=== PATIENT | male | born 1925 | race Caucasian/White ===

== ENCOUNTER 2017-01-08 06:22 | Inpatient (IN) | payer OTHER ==
[~2017-01-08] VITALS: Ht 172.7 cm; Wt 99.8 kg
[2017-01-08] MEDS ORDERED: DONEPEZIL HYDRO10 M2 PO (07:10)
[2017-01-08] MEDS ORDERED: TRAZODONE50 M1 PO (07:10)
[2017-01-08] MEDS ORDERED: NOR5 PO (07:10)
[2017-01-08] MEDS ORDERED: AMARYL4 MG (07:11)
[2017-01-08] MEDS ORDERED: HALOPERIDOL2 MG (07:11)
[2017-01-08] MEDS ORDERED: MOT600 PO (07:12)
[2017-01-08] MEDS ORDERED: NAMENDA10 M2 PO (07:12)
[2017-01-08] MEDS ORDERED: BENAZEPRIL10 M1 (07:12)
[2017-01-08 07:48] LABS: BASOPHIL % 0.3 % (0-2); PLATELET COUNT 214 x10^3mcL (130-400); RED CELL DISTRIBUTION WIDTH 13.5 % (11.5-14.5)
[2017-01-08 08:17] LABS: ALBUMIN 2.8 g/dL (3.4-5.0); ALKALINE PHOSPHATASE 86 U/L (46-116); ALT/SGPT 25 U/L (16-63); AST/SGOT 28 U/L (15-37); BILIRUBIN TOTAL 0.6 mg/dL (0.20-1.00); CALCIUM 8.4 mg/dL (8.5-10.1); CARBON DIOXIDE 27.9 mmol/L (21-32); CHLORIDE SERUM 105 mmol/L (98-107); CREATININE SERUM 1.6 mg/dL (0.7-1.3); GLUCOSE SERUM 229 mg/dL (74-106); POTASSIUM SERUM 3.8 mmol/L (3.5-5.1); SODIUM SERUM 138 mmol/L (136-145); TOTAL PROTEIN, SERUM 7.8 g/dL (6.4-8.2)
[2017-01-08 09:18] VITALS: BP 139/64
[2017-01-08 09:46] LABS: T3 TOTAL 0.91 ng/mL
[2017-01-08 10:30] LABS: CHOLESTEROL/HDL RATIO 4.3; MAGNESIUM 1.7 mg/dL (1.8-2.4); PHOSPHOROUS 3.3 mg/dL (2.5-4.9)
[2017-01-08 10:40] LABS: FREE T4 1.35 ng/dL (0.76-1.46); FREE THYROXINE INDEX 3.1 ug/dL (1.4-4.5); T4(THYROXINE) 8.5 ug/dL (4.7-13.3)
[2017-01-08 11:40] VITALS: BP 139/64
[2017-01-08 17:43] LABS: RED BLOOD CELLS 3.92 M/mm3 (4.52-5.90)
[2017-01-08 19:34] LABS: IRON 33 ug/dL (65-170); TOTAL IRON BINDING CAPACITY 278 ug/dL (250-450)
[2017-01-08 20:50] VITALS: BP 155/77
[2017-01-09] VITALS (7 sets, daily range): BP systolic 109–144; BP diastolic 55–66; Ht 172.7 cm; Wt 99.8 kg
[2017-01-09 00:44] LABS: UA SPECIFIC GRAVITY >=1.030 (1.005-1.035); microscopic required? YES; urine erythrocyte TRACE (NEGATIVE)
[2017-01-09 06:32] LABS: BASOPHIL % 0.5 % (0-2); PLATELET COUNT 227 x10^3mcL (130-400); RED CELL DISTRIBUTION WIDTH 13.5 % (11.5-14.5)
[2017-01-09 06:41] LABS: CALCIUM 8.3 mg/dL (8.5-10.1); CARBON DIOXIDE 28.9 mmol/L (21-32); CHLORIDE SERUM 108 mmol/L (98-107); CREATININE SERUM 1.7 mg/dL (0.7-1.3); GLUCOSE SERUM 170 mg/dL (74-106); PHOSPHOROUS 4.1 mg/dL (2.5-4.9); POTASSIUM SERUM 4.3 mmol/L (3.5-5.1); SODIUM SERUM 144 mmol/L (136-145)
[2017-01-10 05:00] VITALS: BP 138/68
[2017-01-10 05:59] LABS: BASOPHIL % 0.1 % (0-2); PLATELET COUNT 199 x10^3mcL (130-400); RED CELL DISTRIBUTION WIDTH 13.3 % (11.5-14.5)
[2017-01-10 06:14] LABS: CALCIUM 8.6 mg/dL (8.5-10.1); CARBON DIOXIDE 29.2 mmol/L (21-32); CHLORIDE SERUM 105 mmol/L (98-107); CREATININE SERUM 1.7 mg/dL (0.7-1.3); GLUCOSE SERUM 178 mg/dL (74-106); SODIUM SERUM 140 mmol/L (136-145)
[2017-01-10 06:22] LABS: MAGNESIUM 2.1 mg/dL (1.8-2.4); PHOSPHOROUS 4.5 mg/dL (2.5-4.9)
[2017-01-10 09:25] VITALS: BP 142/77
[2017-01-10 12:59] VITALS: BP 124/58
[2017-01-10 16:58] VITALS: BP 150/70
[2017-01-10 21:47] VITALS: BP 94/67
[2017-01-11 05:34] VITALS: BP 126/68
[2017-01-11 08:13] LABS: BASOPHIL % 0.5 % (0-2); PLATELET COUNT 214 x10^3mcL (130-400); RED CELL DISTRIBUTION WIDTH 13.3 % (11.5-14.5)
[2017-01-11 09:09] LABS: CALCIUM 8.6 mg/dL (8.5-10.1); CARBON DIOXIDE 29.1 mmol/L (21-32); CHLORIDE SERUM 105 mmol/L (98-107); CREATININE SERUM 1.5 mg/dL (0.7-1.3); GLUCOSE SERUM 106 mg/dL (74-106); POTASSIUM SERUM 4.4 mmol/L (3.5-5.1); SODIUM SERUM 141 mmol/L (136-145)
[2017-01-11 10:57] VITALS: BP 116/80
[2017-01-11 13:51] VITALS: BP 121/78
[2017-01-11 17:40] VITALS: BP 137/62
[2017-01-11] MEDS ORDERED: LAC PO (18:18)
[2017-01-11] MEDS ORDERED: CLINDAMYCI600 MG/50 IV (18:18)
[2017-01-11] MEDS ORDERED: LEVOFLOXACIN IV (18:18)
== END 2017-01-11 22:09 | DRG 177 ==
LOC: ED 06:22 → DU 08:07
PROVIDERS: Emergency Medicine; Family Medicine; ADMIT Family Medicine
DX: J69.0 Pneumonitis due to inhalation of food and vomit (principal); G93.41 Metabolic encephalopathy; N17.0 Acute kidney failure with tubular necrosis; E43 Unspecified severe protein-calorie malnutrition; I48.91 Unspecified atrial fibrillation; M51.36 Other intervertebral disc degeneration, lumbar region; N31.9 Neuromuscular dysfunction of bladder, unspecified; N39.498 Other specified urinary incontinence; K59.8 Other specified functional intestinal disorders; E11.65 Type 2 diabetes mellitus with hyperglycemia; E11.51 Type 2 diabetes mellitus with diabetic peripheral angiopathy without gangrene; E11.40 Type 2 diabetes mellitus with diabetic neuropathy, unspecified; I10 Essential (primary) hypertension; E83.42 Hypomagnesemia; E78.5 Hyperlipidemia, unspecified; G30.9 Alzheimer's disease, unspecified; F02.80 Dementia in other diseases classified elsewhere, unspecified severity, without behavioral disturbance, psychotic disturbance, mood disturbance, and anxiety; D64.9 Anemia, unspecified; Z68.33 Body mass index [BMI] 33.0-33.9, adult; Z85.118 Personal history of other malignant neoplasm of bronchus and lung; Z87.891 Personal history of nicotine dependence
CPT/HCPCS: 82962; 83880; 84439; 94150; 97110-GP; 97116-GP; 97530-GP; J0696; J1885; J1956; J3490; J7030; J7050; J7620; Q0092